=== PATIENT | female | born 1995 | race African-American/Black ===

== ENCOUNTER 2018-05-05 08:14 | Emergency (ER) | payer OTHER ==
[2018-05-05 08:45] LABS: BASO % 0.7 % (0.0-1.0); EOS # 0.1 10^3/uL (0.0-0.50); EOS % 3.3 % (0.0-3.0); HEMATOCRIT 37.7 % (36.0-47.0); HEMOGLOBIN 12.2 g/dl (12.0-15.5); LYMPH # 1.3 10^3/uL (1.5-6.5); LYMPH % 30.4 % (24.0-44.0); MEAN CORPUSCULAR HEMOGLOBIN 27.1 pg (27.0-33.0); MEAN CORPUSCULAR HGB CONC 32.4 g/dl (32.0-36.5); MEAN CORPUSCULAR VOLUME 83.8 fl (80.0-96.0); MONO # 0.3 10^3/uL (0.0-0.8); MONO % 7.7 % (0.0-5.0); NEUTROPHILS # 2.5 10^3/uL (1.8-7.7); NEUTROPHILS % 57.9 % (36.0-66.0); PLATELET COUNT, AUTOMATED 343 10^3/uL (150-450); WHITE BLOOD COUNT 4.3 10^3/uL (4.0-10.0)
[2018-05-05] MEDS: ACETAMINOPHEN 325 MG TAB PO (08:52)
[2018-05-05 09:00] LABS: KETONE, URINE AUTO RFX NEGATIVE (NEGATIVE); LEUKOCYTE ESTERASE UR AUTO RFX NEGATIVE (NEGATIVE); MUCUS, URINE RFX SMALL (NEGATIVE); NITRITE, URINE AUTO RFX NEGATIVE (NEGATIVE); RBC, URINE AUTO RFX 1 /HPF (0-3); SQUAM EPITHELIAL CELL UR AURFX 0 /HPF (0-6); WBC, URINE AUTO RFX 2 /HPF (0-3)
[2018-05-05 09:18] LABS: ANION GAP 8 MEQ/L (8-16); BLOOD UREA NITROGEN 10 MG/DL (7-18); CALCIUM LEVEL 8.8 MG/DL (8.5-10.1); CARBON DIOXIDE LEVEL 26 MEQ/L (21-32); CHLORIDE LEVEL 103 MEQ/L (98-107); CREATININE FOR GFR 0.75 MG/DL (0.55-1.30); GLOMERULAR FILTRATION RATE > 60.0 (>60); GLUCOSE, FASTING 88 MG/DL (70-100); HCG, SERUM QUANTITATIVE 9797 MIU/ML; POTASSIUM SERUM 3.4 MEQ/L (3.5-5.1); SODIUM LEVEL 137 MEQ/L (136-145)
== END 2018-05-05 10:35 | disposition home or self-care (01) ==
LOC: M ED 08:14
DX: O26.891 Other specified pregnancy related conditions, first trimester (principal); R10.30 Lower abdominal pain, unspecified; R11.0 Nausea; O34.531 Maternal care for retroversion of gravid uterus, first trimester; Z3A.01 Less than 8 weeks gestation of pregnancy
CPT/HCPCS: 76801

== ENCOUNTER 2018-05-23 16:16 | Emergency (ER) | payer OTHER ==
[2018-05-23 16:50] LABS: BASO % 0.5 % (0.0-1.0); EOS # 0.2 10^3/uL (0.0-0.50); EOS % 2.6 % (0.0-3.0); HEMATOCRIT 36.3 % (36.0-47.0); HEMOGLOBIN 11.7 g/dl (12.0-15.5); IMMATURE GRANULOCYTE % 0.3 % (0-3.0); LYMPH # 1.4 10^3/uL (1.5-6.5); LYMPH % 21.7 % (24.0-44.0); MEAN CORPUSCULAR HEMOGLOBIN 27.3 pg (27.0-33.0); MEAN CORPUSCULAR HGB CONC 32.2 g/dl (32.0-36.5); MEAN CORPUSCULAR VOLUME 84.6 fl (80.0-96.0); MONO # 0.6 10^3/uL (0.0-0.8); MONO % 9.3 % (0.0-5.0); NEUTROPHILS # 4.1 10^3/uL (1.8-7.7); NEUTROPHILS % 65.6 % (36.0-66.0); PLATELET COUNT, AUTOMATED 325 10^3/uL (150-450); RED BLOOD COUNT 4.29 10^6/uL (4.00-5.40); RED CELL DISTRIBUTION WIDTH 14.6 % (11.5-14.5); WHITE BLOOD COUNT 6.3 10^3/uL (4.0-10.0)
[2018-05-23 17:41] LABS: HCG, SERUM QUANTITATIVE 80440 MIU/ML
== END 2018-05-23 18:15 | disposition home or self-care (01) ==
LOC: M ED 16:16
DX: O26.891 Other specified pregnancy related conditions, first trimester (principal); R11.0 Nausea; O26.851 Spotting complicating pregnancy, first trimester; N93.9 Abnormal uterine and vaginal bleeding, unspecified; Z3A.08 8 weeks gestation of pregnancy
CPT/HCPCS: 76801

== ENCOUNTER 2018-06-06 14:00 | Emergency (ER) | payer OTHER ==
[2018-06-06 14:52] LABS: BASO % 0.2 % (0.0-1.0); EOS # 0.2 10^3/uL (0.0-0.50); EOS % 1.9 % (0.0-3.0); HEMATOCRIT 34.4 % (36.0-47.0); HEMOGLOBIN 11.5 g/dl (12.0-15.5); IMMATURE GRANULOCYTE % 0.2 % (0-3.0); LYMPH # 1.6 10^3/uL (1.5-6.5); LYMPH % 19.6 % (24.0-44.0); MEAN CORPUSCULAR HEMOGLOBIN 28.2 pg (27.0-33.0); MEAN CORPUSCULAR HGB CONC 33.4 g/dl (32.0-36.5); MEAN CORPUSCULAR VOLUME 84.3 fl (80.0-96.0); MONO # 0.8 10^3/uL (0.0-0.8); NEUTROPHILS # 5.7 10^3/uL (1.8-7.7); NEUTROPHILS % 69.1 % (36.0-66.0); PLATELET COUNT, AUTOMATED 319 10^3/uL (150-450); RED BLOOD COUNT 4.08 10^6/uL (4.00-5.40); RED CELL DISTRIBUTION WIDTH 14.5 % (11.5-14.5); WHITE BLOOD COUNT 8.3 10^3/uL (4.0-10.0)
[2018-06-06 14:56] LABS: KETONE, URINE AUTO RFX NEGATIVE (NEGATIVE); NITRITE, URINE AUTO RFX NEGATIVE (NEGATIVE); RBC, URINE AUTO RFX 0 /HPF (0-3); SPECIFIC GRAVITY UR AUTO RFX 1.004 (1.002-1.035); SQUAM EPITHELIAL CELL UR AURFX 2 /HPF (0-6); WBC, URINE AUTO RFX 1 /HPF (0-3)
[2018-06-06 15:01] LABS: LEUKOCYTE ESTERASE UR AUTO RFX TRACE (NEGATIVE)
[2018-06-06 15:33] LABS: HCG, SERUM QUANTITATIVE 99355 MIU/ML
== END 2018-06-06 17:59 | disposition home or self-care (01) ==
LOC: M ED 14:00
DX: O20.9 Hemorrhage in early pregnancy, unspecified (principal); Z3A.10 10 weeks gestation of pregnancy
CPT/HCPCS: 76801

== ENCOUNTER 2019-01-02 01:04 | Inpatient (IN) | payer OTHER ==
[2019-01-02] VITALS (8 sets, daily range): BP systolic 115–125; BP diastolic 58–76
[~2019-01-02] VITALS: Ht 170.2 cm; Wt 68.0 kg
[~2019-01-02 01:04] MED LIST: prenatal
[2019-01-02] MEDS ORDERED: LR 1,000 ML IV SCH ×2 (01:46→08:30)
[2019-01-02] MEDS ORDERED: LACTATED RINGER'S 1000 ML IV STA (01:46)
--- NOTE | 2019-01-02 01:46 | HPEPDOC ---
Obstetrical History & Physical General Date of Admission January 02, 2019 at 01:32 History of Present Illness 22 y/o at 40+0 with 18 hrs reg ctx's, now worsening, SROM of mec-stained fl uid as soon as came onto the unit. No VB. Pos FM. Preg uncomplicated. 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, Spontaneous Past Medical History Medical History denies Surgical History: Denies/None Family History Significant Family History: No pertinent family hx Social History Marital Status: Family situation: Spouse/partner home Psychosocial History: No pertinent psych hx * Smoker: non-smoker Alcohol: Denies Drugs: denies Abuse Violence Screening Have you been hit/kicked/slapp: No Have you been sexually assault: No Imunizations Tdap status: declined Influenza Status: declined Allergies Coded Allergies: No Known Allergies (Unverified , 05/23/18) Medications Scheduled [] , DAILY Physical Examination Physical Examination GENERAL: Alert and oriented times three. ABDOMEN: Gravid and non-tender to touch. FETUS: Is vertex (VTX) by sterile vaginal examination (SVE), Cx 3-4/90/-2 EXTREMITIES: No edema. Laboratory Data Urine Culture: Contaminated Pertinent Laboratoy Data Blood Type: A+ RBC Antibody Screen: Negative HIV: Negative Hepatitis B: Negative Hepatitis C: Unknown Rapid Plasma Reagin: Nonreactive Rubella: Immune Varicella: Immune Chlamydia/Gonorrhea: Negative Group B Streptococcus: Negative Quad Screen Test: Declined Cystic Fibrosis: Negative Anatomy Ultrasound Placenta Location: Posterior Normal Anatomy: Yes (limited on first 2 scans, eventual ly everything seen) Placenta Previa: No Assessment Variability: Moderate Accelerations: Positive Decelerations: None (but patchy, spotty tracing, not continuous) Tocometer Contractions: Yes Frequency: regular Duration: greater than 60 seconds Assessment/Plan Assessment SROM at 40+0, mec noted Plan Admit and orient. Cloth Checker and consent. Diet: clears Group B Streptococcus (GBS) neg Labs and intravenous (IV) per unit protocol. Counseled on Pitocin and induction of labor (IOL). Lactated Ringers (LR): Bolus 1000 mL, then at 125 mL/hr. Anticipate normal spontaneous delivery () C-S as appropriate. Sessions SESSIONS,KACEY Renee MD January 02, 2019 01:46
[2019-01-02] MEDS ORDERED: LACTATED RINGER'S 1000 ML IV PRN (02:15)
[2019-01-02] MEDS ORDERED: EPIDURAL COMMENT XX SCH (02:15)
[2019-01-02] MEDS ORDERED: ePHEDrine SULFATE 25 MG/5 ML(5MG/ML) SYRINGE IV PRN (02:15)
[2019-01-02] MEDS ORDERED: FENTANYL/ROPIVACAINE/NACL BAG 100 ML EPIDURAL SCH (02:15)
[2019-01-02] MEDS ORDERED: ONDANSETRON 4MG/2ML VIAL (J2405) IV PRN ×2 (02:15→08:30)
[2019-01-02] MEDS ORDERED: NALOXONE INJ 0.4 MG/1 ML VIAL (J2310) IV PRN (02:15)
[2019-01-02] MEDS ORDERED: REFRIGERATOR IV KEYS XX PRN (02:15)
[2019-01-02] MEDS ORDERED: diphenhydrAMINE INJ 50MG/ML VIAL (J1200) IV PRN (02:15)
[2019-01-02] MEDS ORDERED: EPIDURAL/PCA KEYS XX PRN (02:15)
[2019-01-02 02:29] LABS: HEMATOCRIT 34.6 % (36.0-47.0); MEAN CORPUSCULAR HEMOGLOBIN 30.8 pg (27.0-33.0); MEAN CORPUSCULAR HGB CONC 34.7 g/dl (32.0-36.5); MEAN CORPUSCULAR VOLUME 88.9 fl (80.0-96.0); PLATELET COUNT, AUTOMATED 244 10^3/uL (150-450); RED BLOOD COUNT 3.89 10^6/uL (4.00-5.40); WHITE BLOOD COUNT 9.2 10^3/uL (4.0-10.0)
[2019-01-02] MEDS ORDERED: FENTANYL 2MCG/ML ROPIVACAINE 0.2% IN 0.9% NACL 100ML IVBAG As Ordered ONE (02:40)
[2019-01-02] MEDS ORDERED: OXYTOCIN 30 UNITS IN 0.9% NaCl 500ML IV BAG (J2590) As Ordered ONE ×2 (04:22→07:00)
[2019-01-02] MEDS ORDERED: ceFAZolin 2 GM/D5W 50 ML IV BAG (J0690 PER 500MG) As Ordered ONE (05:42)
[2019-01-02] MEDS ORDERED: AZITHROMYCIN INJ 500MG VIAL (J0456) As Ordered ONE (05:43)
[2019-01-02] MEDS ORDERED: BICITRA 30ML SOLN UDC As Ordered ONE (05:43)
--- NOTE | 2019-01-02 05:55 | IPNPDOC ---
Text Note Date of Service The patient was seen on 01/02/19. NOTE Called to the room by RN who "felt something weird" NST Cat 2 with intermittent variables and late decels Cx 6/100/0, face presentation with palpable lips/eye socket c/w MP, confirmed by US IC obtained for indicated PLTCS, mentum posterior OR/anesthesia team mobilizing Sessions VS,Idris, I+O VS, Idris I+O Laboratory Tests 01/02/19 02:18 Red Blood Count 3.89 L, Mean Corpuscular Volume 88.9, Mean Corpuscular Hemoglobin 30.8, Mean Corpuscular Hemoglobin Concent 34.7, Red Cell Distribution Width 12.5 SESSIONS,KACEY Renee MD January 02, 2019 05:55
[2019-01-02] MEDS ORDERED: BICITRA 30ML SOLN UDC PO ONE (06:00)
[2019-01-02] MEDS ORDERED: AZITHROMYCIN INJ 500 MG, VIAL MATE ADAPTER 1 EACH in D5W 250 ML IV ONE (06:00)
[2019-01-02] MEDS ORDERED: KETOROLAC 60 MG/2 ML VIAL (J1885) As Ordered ONE (06:11)
[2019-01-02] MEDS ORDERED: OXYTOCIN INJ 10 UNITS/ML VIAL (J2590) As Ordered ONE (06:11)
[2019-01-02] MEDS ORDERED: ONDANSETRON 4MG/2ML VIAL (J2405) As Ordered ONE (06:11)
[2019-01-02] MEDS ORDERED: LIDOCAINE PRES-FREE 2% 10ML AMP As Ordered ONE (06:11)
[2019-01-02] MEDS ORDERED: KETAMINE HCL 200 MG/20 ML VIAL As Ordered ONE (06:24)
[2019-01-02] MEDS ORDERED: MORPHINE PRES-FREE INJ 10 MG/10 ML VIAL (J2274) As Ordered ONE (06:34)
[2019-01-02] MEDS ORDERED: PROPOFOL 200 MG/20 ML VIAL As Ordered ONE (06:36)
[2019-01-02 06:42] LABS: CORD GAS O2 SAT V 63.5 %; CORD GAS PCO2 V 52.7 mmHg; CORD GAS PH V 7.327 UNITS; CORD GAS PO2 V 29.6 mmHg; CORD GAS SBC V 23.5 MEQ/L; CORD GAS TCO2 V 28.6 MEQ/L
[2019-01-02] MEDS ORDERED: fentaNYL 100 MCG/2 ML INJECTION (J3010) As Ordered ONE ×2 (07:01→08:18)
[2019-01-02] MEDS ORDERED: OXYTOCIN DRIP 30 UNITS in APPROPRIATE DILUENT 1 EA IV SCH (07:25)
[2019-01-02] MEDS ORDERED: PERCOCET 5MG/325MG TAB PO PRN ×2 (07:30→08:30)
[2019-01-02] MEDS ORDERED: MEASLES,MUMPS,RUBELLA VACCINE INJ (MMR-II) (90707) SC SCH (07:30)
[2019-01-02] MEDS ORDERED: RHOGAM 300 MCG (1500 IU) INJ (J2790) IM SCH (07:30)
[2019-01-02] MEDS ORDERED: METOCLOPRAMIDE INJ 10MG/2ML VIAL (J2765) IV PRN ×2 (07:30→08:30)
[2019-01-02] MEDS: fentaNYL 100 MCG/2 ML INJECTION (J3010) IV PRN ×2 (08:19→08:58)
[2019-01-02] MEDS: DOCUSATE SODIUM 100 MG CAP PO SCH ×2 (09:30→20:59)
[2019-01-02] MEDS: PRENATAL VITAMINS CHEWABLE TABLET PO SCH (09:30)
--- NOTE | 2019-01-02 10:01 | RO ---
DATE OF PROCEDURE: 01/02/2019 SURGEON: Jose Alejandro Anderson MD PLUMBING AND HEATING CONTRACTOR: Fantasma Crooks. PREOPERATIVE DIAGNOSIS: Face presentation with mentum posterior. POSTOPERATIVE DIAGNOSIS: Face presentation with mentum posterior, confirmed. ANESTHESIA: Epidural ESTIMATED BLOOD LOSS: 600 mL. DRAINS: 275 mL in the Nguyen catheter at the end of the procedure. FLUIDS REPLACED: 1400 mL of lactated Ringer. PREOPERATIVE ANTIBIOTICS: Ancef 2 grams intravenous (IV) and azithromycin 500 mg. PROCEDURE: Primary low transverse section. FINDINGS: Pfannenstiel skin incision, low transverse uterine incision, meconium-stained fluid, scores 8 and 9 of a healthy male weighing 3460 grams or 7 pounds 10 ounces. INDICATIONS: The patient was admitted with spontaneous rupture of membranes with meconium-stained fluid noted and in active labor marcos regularly. She received an epidural. Cervix of 3 cm to a dilation of 6 cm noted, but an obvious mentum posterior face presentation was noted at the time of this latest check. Therefore, vaginal delivery is contraindicated, and I advised her and consented her for a primary low transverse delivery. DESCRIPTION OF THE OPERATION: The patient taken to the operating room with an IV in place after the epidural was dosed, and she was placed in a dorsal supine position with a leftward tilt. heart tones were normal in the operating room. She was then prepped and draped in normal sterile fashion. Nguyen catheter was already in place. After she was prepped and draped, we confirmed the epidural was adequate. Was a spotty on the left, but we were able to proceed. I believe at some point during the procedure, anesthesia had to give her something extra due to her feeling too much of what was going on. Pfannenstiel skin incision was carried down to the layer of fascia, which was nicked in the midline and extended bilaterally extent of the skin incision. The Rancho clamps were used to tent up the superior and inferior edges of the fascia, and the underlying rectus muscles were dissected off sharply. The rectus muscles were in the midline. The peritoneum was breeched with my digit, and a gentle stretching maneuver created an adequate peritoneal window. Bladder blade was placed. Bladder flap was easily created, and a low transverse uterine incision was performed down to the amnion and stretched to adequacy. I breeched the amnion with my digit and the previously known amount of meconium-stained fluid was noted. Obvious mentum posterior face presentation was delivered through the uterine incision without difficulty, and with fundal pressure the rest of the body followed. Cord was clamped times two and cut. Cord blood was obtained and cord gases, as well, which were venous gases 7.32 with a base excess of zero. Arterial blood gas was not able to be obtained. Placenta was delivered under traction with fundal massage and Pitocin running wide open. It was intact. The uterine cavity was cleared of both clot and debris with two dry sponges. The uterine incision was closed from [id number]. There was a slight extension on the right side down towards the cervix, however, it did not reach the cervix. A satisfactory closure was obtained with a running locked suture of 0 Vicryl. A 0 Monocryl was used to imbricate. A single figure-of-8 suture of the left aspect of the incision was needed to obtain hemostasis. Irrigation was performed behind the uterus. It was returned to its anatomical state, and the uterine incision was inspected and confirmed to be hemostatic. Both colic gutters were easily cleared bilaterally of any clot or debris, and the peritoneum was closed from superior to inferior with a 2-0 Vicryl. Rectus bellies were intact, nonbleeding. The fascia was closed from left to right with a 0 Vicryl. Subcutaneous tissue was copiously irrigated, reapproximated with 2-0 Vicryl after being made to be hemostatic and irrigated. The skin was closed with a 4-0 Monocryl, Steri- Strips, and pressure dressing. A bimanual examination at the end of the case with the patient's legs frogged confirmed relative hemostasis and a firm uterus at U minus 1. All counts, including sponge, needle, and instruments throughout the case were correct. MARSHAD
[2019-01-02] MEDS: LR 1,000 ML IV SCH ×3 (10:09→23:05)
[2019-01-02] MEDS: KETOROLAC 30 MG/ML VIAL (J1885) IV SCH ×3 (12:05→23:52)
[2019-01-03 01:14] VITALS: BP 107/55
[2019-01-03 05:38] VITALS: BP 103/61
[2019-01-03] MEDS: PERCOCET 5MG/325MG TAB PO PRN ×2 (06:26→12:37)
[2019-01-03] MEDS: LR 1,000 ML IV SCH (06:32)
[2019-01-03 06:49] LABS: HEMATOCRIT 27.7 % (36.0-47.0); MEAN CORPUSCULAR HEMOGLOBIN 30.8 pg (27.0-33.0); MEAN CORPUSCULAR HGB CONC 33.2 g/dl (32.0-36.5); MEAN CORPUSCULAR VOLUME 92.6 fl (80.0-96.0); PLATELET COUNT, AUTOMATED 210 10^3/uL (150-450); RED BLOOD COUNT 2.99 10^6/uL (4.00-5.40); WHITE BLOOD COUNT 9.9 10^3/uL (4.0-10.0)
[2019-01-03 06:55] LABS: HEMOGLOBIN 9.2 g/dl (12.0-15.5)
[2019-01-03] MEDS: PRENATAL VITAMINS CHEWABLE TABLET PO SCH (08:27)
[2019-01-03] MEDS: DOCUSATE SODIUM 100 MG CAP PO SCH ×2 (08:27→20:18)
[2019-01-03] MEDS: IBUPROFEN 800 MG TAB PO SCH ×3 (08:27→23:52)
[2019-01-03 10:00] VITALS: BP 111/58
--- NOTE | 2019-01-03 11:19 | IPN ---
DATE: 01/03/2019 This and patient requested circumcision of their male . After discussing risks and benefits of circumcision, the medical and nonmedical indications, penile block and aftercare expressed understanding of penile block aftercare and bleeding, signed the consent form. All questions were answered. 20-minute discussion. We await the clearance by the motor racer
[2019-01-03 14:00] VITALS: BP 124/64
--- NOTE | 2019-01-03 15:42 | IPNPDOC ---
Text Note Date of Service The patient was seen on 01/03/19. NOTE POD1 PLTCS States feeling well, pain controlled with prescribed meds. Baby bonding and feeding well. No heavy VB. Lochia slowing. Ambulatory. Tolerating PO without issues. Nguyen now gone, UO adequate. VSSAF NAD A&O RRR CTAB LE no C/C/E Ut at U-2, firm Inc with bandage gone, C/D/I CBC this AM appropr a/p: Doing well. Cont routine postop care. D/C tomorrow likely. Sessions Idris BROWNING, I+O Idris SAINI I+O Laboratory Tests 01/03/19 06:30 Red Blood Count 2.99 L, Mean Corpuscular Volume 92.6, Mean Corpuscular He moglobin 30.8, Mean Corpuscular Hemoglobin Concent 33.2, Red Cell Distribution Width 12.5 Vital Signs Date Time Temp Pulse Resp B/P (MAP) Pulse Ox O2 Delivery O2 Flow Rate FiO2 01/03/19 14:00 98.6 97 18 124/64 (84) 100 I&O- Last 24 Hours up to 6 AM 01/03/19 06:00 Intake Total 4020 ml Output Total 2525 ml Balance 1495 ml SESSIONSKACEY MD January 03, 2019 15:42
[2019-01-03 17:55] VITALS: BP 112/68
[2019-01-03 23:36] VITALS: BP 115/63
[2019-01-04 02:03] VITALS: BP 120/71
[2019-01-04] MEDS: PERCOCET 5MG/325MG TAB PO PRN ×2 (05:46→13:02)
[2019-01-04 06:14] VITALS: BP 115/69
[2019-01-04] MEDS ORDERED: IBUP80TA PO (06:46)
[2019-01-04] MEDS ORDERED: PRENCHW PO (06:46)
[2019-01-04] MEDS ORDERED: PERCOCET PO (06:46)
[2019-01-04] MEDS ORDERED: COLA100C5 PO (06:46)
[2019-01-04] MEDS: IBUPROFEN 800 MG TAB PO SCH (07:43)
[2019-01-04] MEDS: PRENATAL VITAMINS CHEWABLE TABLET PO SCH (07:43)
[2019-01-04] MEDS: DOCUSATE SODIUM 100 MG CAP PO SCH (07:43)
[2019-01-04 10:00] VITALS: BP 118/71
--- NOTE | 2019-01-04 17:46 | DSES ---
DATE OF ADMISSION: 01/02/2019 DATE OF DISCHARGE: 01/04/2019 This lady is a 23-year-old 2, now para 1, admitted with contractions at 40 weeks of gestation with spontaneous rupture of membranes and heavy meconium-stained liquor. She had a primary section for face presentation, a live male , 7 pounds 10 ounces, 3460 grams, scores of 8 and 9 at one and five minutes respectfully. Venous pH 7.32, base excess 0. On her second day we discussed phlebitis, cystitis, mastitis, metritis, cellulitis, diet, exercise pain management, perineal, breast, and wound care. Medications were dispensed at discharge. control is undecided at the present time. The rest of the examination unremarkable. Normocephalic, atraumatic. Neck: Full range of motion. Pupils equal and reactive to light. Distal pulses symmetric. No evidence of deep vein thrombosis (DVT), pulmonary embolism (PE), or superficial phlebitis. Chest is clear bilaterally to bases. No wheezes or rhonchi. Abdomen soft. Uterus is 2 below. Lochia is moderate. Incision is clean and dry. She is passing gas. Presently is bottle-feeding. She has no rashes, lesions, or pruritus. No arthralgia, myalgia. No complaint of joint pain. No complaints of cough, wheezes, shortness of breath, or dyspnea on exertion. No bleeding. Neurologic complete. No diabetic issues. PLAN: Discharge for today with medications. A 2-week incision check, 6-week check. control will be discussed at her 6-week check. The patient's examination was complete. Her vital signs on discharge: Her blood pressure was 115/69, respirations 17, pulse 86, temperature 98.0. Admitting hemoglobin was 12.0, hematocrit 34.6, and platelets are 244. Discharge hemoglobin 9.2, hematocrit 27.7. She is asymptomatic. Her platelets are 210.
== END 2019-01-04 14:00 | disposition home or self-care (01) | DRG 807 ==
LOC: M LDO 01:04 → M LDI 01:32 → M OBS 09:23
PROVIDERS: ADMIT Obstetrics & Gynecology; ATTEND Obstetrics & Gynecology
PROC: 10E0XZZ Delivery of Products of Conception, External Approach (ICD-10-PCS; principal; 2019-01-02 07:09)
DX: O77.0 Labor and delivery complicated by meconium in amniotic fluid (principal); Z37.0 Single live birth; Z3A.40 40 weeks gestation of pregnancy; O32.3XX0 Maternal care for face, brow and chin presentation, not applicable or unspecified